=== PATIENT | female | born 1995 | race African-American/Black ===

== ENCOUNTER 2019-11-22 22:52 | Emergency (ER) | payer OTHER ==
[~2019-11-22] VITALS: Ht 165.1 cm; Wt 82.0 kg
[2019-11-23 00:43] VITALS: BP 134/82
== END 2019-11-23 00:25 | disposition home or self-care (01) ==
LOC: ER 22:52 → EDBD 22:52 → ER 11-23 00:25
DX: R46.2 Strange and inexplicable behavior (principal)
CPT/HCPCS: 99283

== ENCOUNTER 2022-12-10 18:16 | Emergency (ER) | payer MEDICAID, OTHER ==
[~2022-12-10] VITALS: Ht 170.2 cm; Wt 75.0 kg
[2022-12-10 18:26] VITALS: O2SAT 99
[2022-12-10] MEDS ORDERED: SULF1TAB48 MT ×2 (19:24)
[2022-12-10] MEDS ORDERED: TETANUS, DIPHTHERIA, PERTUSSIS VAC/PF 0.5ML (>10YR OLD) IM ONE (19:30)
[2022-12-10] MEDS ORDERED: BACITRACIN ZINC OINT UDPKT TOP ONE (19:30)
[2022-12-10] MEDS ORDERED: AMOX1TAB16 MT (19:37)
[2022-12-10] MEDS ORDERED: KETOROLAC 60MG/2ML VIAL IM ONE (19:45)
[2022-12-10 20:20] VITALS: BP 128/81; PULSE 104; RESP 18; TEMP 98
== END 2022-12-10 20:21 | disposition home or self-care (01) ==
LOC: ER 18:16
DX: L03.113 Cellulitis of right upper limb (principal)
CPT/HCPCS: 81025; 73130; 90715; 90471; 96372; 99284; J1885; Z7610

== ENCOUNTER 2023-10-25 14:22 | Emergency (ER) | payer MEDICAID, OTHER ==
[~2023-10-25] VITALS: Ht 170.2 cm; Wt 82.0 kg
[~2023-10-25 14:22] MED LIST: AMOX1TAB16 MT
[2023-10-25 14:31] VITALS: O2SAT 99
[2023-10-25 16:59] VITALS: TEMP 98.3
[2023-10-25] MEDS: KETOROLAC 15MG/ML VIAL IM ONE (16:59)
[2023-10-25] MEDS: BACITRACIN ZINC OINT UDPKT TOP ONE (16:59)
[2023-10-25] MEDS: ACETAMINOPHEN 325MG TABLET PO ONE (16:59)
[2023-10-25 17:16] VITALS: BP 117/66; PULSE 88; RESP 15; O2SAT 99
== END 2023-10-25 18:11 | disposition home or self-care (01) ==
LOC: ER 14:22
DX: S80.01XA Contusion of right knee, initial encounter (principal); S90.32XA Contusion of left foot, initial encounter; V89.9XXA Person injured in unspecified vehicle accident, initial encounter; Y93.89 Activity, other specified; Y92.89 Other specified places as the place of occurrence of the external cause; Y99.8 Other external cause status
CPT/HCPCS: 99284; 73562; 73630; 96372; J1885

== ENCOUNTER 2024-07-24 11:50 | Emergency (ER) | payer MEDICAID ==
[~2024-07-24] VITALS: Ht 170.2 cm; Wt 91.0 kg
[2024-07-24 11:55] VITALS: O2SAT 99
[2024-07-24 12:07] VITALS: TEMP 36.9; O2SAT 100
[2024-07-24] MEDS ORDERED: IBUP-2029 MT (14:15)
[2024-07-24 14:34] VITALS: BP 149/85; PULSE 106; RESP 14
[2024-07-24] MEDS: KETOROLAC 30MG/ML VIAL IM ONE (14:34)
== END 2024-07-24 15:25 | disposition home or self-care (01) ==
LOC: ER 11:50
DX: M79.644 Pain in right finger(s) (principal); Z79.899 Other long term (current) drug therapy; W22.8XXA Striking against or struck by other objects, initial encounter; Y93.89 Activity, other specified; Y92.89 Other specified places as the place of occurrence of the external cause; Y99.8 Other external cause status
CPT/HCPCS: 99283; 81025; 73140; 29130; 96372; J1885

== ENCOUNTER 2024-07-31 10:43 | Emergency (ER) | payer MEDICAID ==
[~2024-07-31] VITALS: Ht 170.2 cm; Wt 100.0 kg
[~2024-07-31 10:43] MED LIST changes: +IBUP-2029 MT
[2024-07-31 10:49] VITALS: O2SAT 98
[2024-07-31 11:53] LABS: BASOPHILS % 0.3 % (0.0-2.0); EOSINOPHILS % 3.5 % (0.0-5.0); MEAN CORPUSCULAR HEMOGLOBIN 31.7 pg (28.0-32.0); MEAN CORPUSCULAR HGB CONC 34.3 g/dL (31.0-37.0); MEAN CORPUSCULAR VOLUME 92.5 fL (81.0-99.0); MEAN PLATELET VOLUME 7.8 fl (7.4-10.4); MONOCYTES % 9.3 % (2.0-8.0); NEUTROPHILS % 58.9 % (40.0-76.0); PLATELET 236 x1000/uL (130-400); RED BLOOD CELL COUNT 4.11 mill/uL (4.2-5.4); RED CELL DISTRIBUTION WIDTH 12.4 % (11.6-14.6); WHITE BLOOD COUNT 4.2 x1000/uL (4.5-11.0)
[2024-07-31 12:04] LABS: CHLORIDE 106 mEq/L (98-107); POTASSIUM 3.6 mEq/L (3.5-5.1); SODIUM 141 mEq/L (136-145)
[2024-07-31 12:05] LABS: CARBON DIOXIDE 25 mEq/L (21-32)
[2024-07-31 12:06] LABS: CALCIUM 8.9 mg/dL (8.7-10.4)
[2024-07-31 12:10] LABS: CREATININE 0.8 mg/dL (0.6-1.0); GLUCOSE 92 mg/dL (70-105); UREA NITROGEN BLOOD 9 mg/dL (9-23)
[2024-07-31 12:11] LABS: ETHANOL BLOOD < 10 mg/dL (<10)
[2024-07-31 12:12] LABS: ACETAMINOPHEN < 2 ug/mL (10-30)
[2024-07-31 12:19] LABS: HCG SCREEN NEGATIVE
[2024-07-31 18:12] LABS: CLARITY URINE CLOUDY (CLEAR); COLOR URINE YELLOW (YELLOW); GLUCOSE URINE NEGATIVE (NEGATIVE); KETONES URINE 2+ (NEGATIVE); LEUKOCYTE ESTERASE URINE 1+ (NEGATIVE); NITRITE URINE POSITIVE (NEGATIVE); OCCULT BLOOD URINE NEGATIVE (NEGATIVE); PROTEIN URINE TRACE (NEGATIVE); SPECIFIC GRAVITY URINE 1.024 (1.005-1.030)
[2024-07-31 18:41] LABS: RBC URINE NONE SEEN /hpf (0-2); SQUAMOUS EPITHELIAL CELL URINE 2+ /lpf (RARE/1+)
[2024-07-31 18:42] LABS: *AMPHETAMINES SCREEN URINE PRESUMPTIVE POSITIVE (NEGATIVE); *BARBITURATES SCREEN URINE NEGATIVE (NEGATIVE); *BENZODIAZEPINES SCREEN URINE NEGATIVE (NEGATIVE); *COCAINE SCREEN URINE NEGATIVE (NEGATIVE); BACTERIA URINE 3+; CANNABINOID URINE SCREEN PRESUMPTIVE POSITIVE (NEGATIVE); ECSTASY MDMA SCREEN URINE NEGATIVE (NEGATIVE); METHADONE URINE SCREEN NEGATIVE (NEGATIVE); OPIATES URINE SCREEN NEGATIVE (NEGATIVE); PHENCYCLIDINE URINE SCREEN NEGATIVE (NEGATIVE)
[2024-07-31 18:43] LABS: MUCUS URINE TRACE /lpf (< = 2+)
[2024-08-01] MEDS: TRAMADOL 50MG TABLET PO NR (00:20)
[2024-08-01] MEDS: IBUPROFEN 800MG TABLET PO NR (00:20)
[2024-08-01 14:21] VITALS: TEMP 36.9
[2024-08-01 17:30] VITALS: BP 124/58; PULSE 69; RESP 16; O2SAT 98
== END 2024-08-01 18:03 ==
LOC: ER 10:43
DX: R45.851 Suicidal ideations (principal); F31.9 Bipolar disorder, unspecified; Z79.899 Other long term (current) drug therapy; Z98.890 Other specified postprocedural states; Z59.00 Homelessness unspecified; Z20.822 Contact with and (suspected) exposure to COVID-19
CPT/HCPCS: 80305; 80048; 81003; 80307; 80329; 80320; 84703; 85025; 36415; 99285; 87426; Z7610; G0480